=== PATIENT | female | born 1990 ===

== ENCOUNTER 2019-09-02 07:18 | Outpatient (CLI) | payer OTHER | END 2019-09-02 10:13 | disposition home or self-care (01) | LOC: SONOGRAMA 07:18 | DX: E04.1 Nontoxic single thyroid nodule (principal) ==

== ENCOUNTER 2025-01-27 04:39 | Inpatient (IN) | payer OTHER ==
[~2025-01-27] VITALS: Ht 162.6 cm; Wt 73.9 kg
[2025-01-27 04:57] VITALS: BP 134/72
[2025-01-27] MEDS ORDERED: RINGERS SOLUTION,LACTATED 1,000 ML IV SCH (05:30)
[2025-01-27] MEDS ORDERED: AMPICILLIN SODIUM 2,000 MG VIAL IV NR (05:30)
[2025-01-27] MEDS ORDERED: VALTREX1000 MG (07:05)
[2025-01-27] MEDS ORDERED: PRENATA CHEWAB1 EACH PO (07:05)
[2025-01-27] MEDS ORDERED: MOTRIN IB200 M1 PO (07:06)
[2025-01-27 07:15] LABS: HEMATOCRIT 35.3 % (36.0-45.00); MEAN CELL VOLUME 86.7 fL (80.00-100.00); MEAN CORPUSCULAR HEMOGLOBIN 29.4 pg (27.00-32.0); MEAN CORPUSCULAR HGB CONC 33.9 g/dl (32.0-36.0); PH,URINE 6.5 (5.0-8.0); PLATELET COUNT 288 K/uL (150-450); RED BLOOD COUNT 4.07 M/uL (4.00-6.00); RED CELL DISTRIBUTION WIDTH 13.3 % (11.5-14.5); URINE APPEARANCE Clear; URINE BILIRRUBIN Negative (NEGATIVE); URINE BLOOD Negative; URINE COLOR Yellow; URINE GLUCOSE Negative (NEGATIVE); URINE KETONE Negative (NEGATIVE); URINE LEUKOCYTE Negative; URINE NITRATE Negative; URINE PROTEIN Negative (NEGATIVE); URINE UROBILINOGEN 0.2 E.U./dl
[2025-01-27 07:16] LABS: URINE BACTERIA 79.5 uL (0.0-1933); URINE EPITHELIAL CELLS 2.2 uL (0.0-38.8); URINE RBC 3.8 uL (0.0-20.8)
[2025-01-27 07:44] VITALS: BP 134/77
[2025-01-27 07:47] LABS: INR < 0.93; PARTIAL THROMBOPLASTIN TIME 24.2 SECONDS (22.0-34.0); PROTHROMBIN TIME 9.9 SECONDS (9.0-11.5)
[2025-01-27 08:01] LABS: ALBUMIN 2.9 gm/dL (3.4-5.0); BILIRUBIN TOTAL 0.43 mg/dL (0.3-1.2); CALCIUM 9.4 mg/dL (8.5-10.1); CREATININE SERUM 0.53 mg/dL (0.55-1.02); GFR 130.53; GLOBULINA 3.4 G/DL (2.4-3.5); POTASSIUM 4.41 mEq/L (3.5-5.1); TOTAL PROTEIN 6.3 gm/dL (6.4-8.2)
[2025-01-27] MEDS ORDERED: AMPICILLIN SODIUM 1,000 MG VIAL IV SCH ×2 (09:00→12:00)
[2025-01-27] MEDS ORDERED: MISOPROSTOL 25 MCG/4 ML GEL.W.APPL VAG ONE ×2 (09:15→13:30)
[2025-01-27 11:30] VITALS: BP 113/73
[2025-01-27] MEDS ORDERED: MISOPROSTOL 25 MCG/4 ML GEL.W.APPL ONE (13:23)
[2025-01-27 15:54] VITALS: BP 132/74
[2025-01-27] MEDS ORDERED: OXYTOCIN 20 UNITS/500ML RL PIGGYBAG IV ONE (17:34)
[2025-01-27] MEDS ORDERED: OXYTOCIN 500 ML IV SCH (17:45)
[2025-01-27 19:53] VITALS: BP 126/73
[2025-01-27 23:40] VITALS: BP 143/68
[2025-01-28 04:30] VITALS: BP 138/66
[2025-01-28] MEDS ORDERED: ERYTHROMYCIN BASE OPHT 1GM EACH TUBE OP ONE (05:12)
[2025-01-28] MEDS ORDERED: OXYTOCIN 10 UNITS/ML VIAL ONE (05:12)
[2025-01-28] MEDS ORDERED: CEFAZOLIN SODIUM 1,000 MG VIAL ONE (05:50)
[2025-01-28] MEDS ORDERED: KETOROLAC TROMETHAMINE 60 MG VIAL IM ONE ×2 (07:00→08:35)
[2025-01-28] MEDS ORDERED: ACETAMINOPHEN 325 MG TABLET PO SCH (07:15)
[2025-01-28] MEDS ORDERED: MORPHINE SULFATE 4 MG/ML CARTRIDGE IV SCH (08:00)
[2025-01-28] MEDS ORDERED: AMPICILLIN SODIUM 1,000 MG VIAL ONE (08:36)
[2025-01-28] MEDS ORDERED: SIMETHICONE 125 MG CAPSULE PO SCH (09:00)
[2025-01-28] MEDS ORDERED: DOCUSATE SODIUM 100MG CAP PO SCH (09:00)
[2025-01-28 11:38] VITALS: BP 119/59
[2025-01-28 13:19] LABS: HEMOGLOBIN 11.7 g/dL (12.0-15.00); MEAN CELL VOLUME 85.2 fL (80.00-100.00); MEAN CORPUSCULAR HEMOGLOBIN 28.6 pg (27.00-32.0); MEAN CORPUSCULAR HGB CONC 33.6 g/dl (32.0-36.0); PLATELET COUNT 250 K/uL (150-450); RED CELL DISTRIBUTION WIDTH 13.2 % (11.5-14.5)
[2025-01-28] MEDS ORDERED: OxyCODONE HCL 5 MG TABLET (ROXICODONE) PO SCH (14:00)
[2025-01-28 16:00] VITALS: BP 106/66
[2025-01-29 00:31] VITALS: BP 101/66
[2025-01-29 05:00] VITALS: BP 102/60
[2025-01-29 08:43] VITALS: BP 116/73
[2025-01-29 16:00] VITALS: BP 110/70
[2025-01-30] VITALS: BP 133/80; O2SAT 97
== END 2025-01-30 16:24 | disposition home or self-care (01) | DRG 788 ==
LOC: OB/GYN 04:39 → LDR 04:39 → OB/GYN 05:23 → LDR 07:32 → OB/GYN 01-28 08:26
PROVIDERS: ADMIT Specialist; ATTEND Specialist
PROC: 3E0P7VZ Introduction of Hormone into Female Reproductive, Via Natural or Artificial Opening (ICD-10-PCS; 2025-01-27)
PROC: 4A1HXCZ Monitoring of Products of Conception, Cardiac Rate, External Approach (ICD-10-PCS; 2025-01-27)
PROC: 3E033VJ Introduction of Other Hormone into Peripheral Vein, Percutaneous Approach (ICD-10-PCS; 2025-01-28)
PROC: 10D00Z1 Extraction of Products of Conception, Low, Open Approach (ICD-10-PCS; principal; 2025-01-28 07:00)
DX: O36.5930 Maternal care for other known or suspected poor fetal growth, third trimester, not applicable or unspecified (principal); O62.1 Secondary uterine inertia; Z3A.39 39 weeks gestation of pregnancy; Z37.0 Single live birth